=== PATIENT | male | born 1945 | race Caucasian/White ===

== ENCOUNTER 2021-11-07 13:55 | Emergency (ER) | payer MEDICARE, OTHER ==
[2021-11-07 14:08] LABS: BASOPHILS # (AUTO) 0.1 10^3/uL (0.0-0.1); BASOPHILS % (AUTO) 1 % (0-10); EOSINOPHILS # (AUTO) 0.3 10^3/uL (0.0-0.3); EOSINOPHILS % (AUTO) 3 % (0-10); HEMATOCRIT 44 % (40-54); HEMOGLOBIN 14.4 g/dL (13.3-17.7); LYMPHOCYTES # (AUTO) 1.7 10^3/uL (1.0-4.0); LYMPHOCYTES % (AUTO) 18 % (12-44); MEAN CORPUSCULAR HEMOGLOBIN 30 pg (25-34); MEAN CORPUSCULAR HGB CONC 33 g/dL (32-36); MEAN CORPUSCULAR VOLUME 92 fL (80-99); MEAN PLATELET VOLUME 11.8 fL (9.0-12.2); MONOCYTES # (AUTO) 0.6 10^3/uL (0.0-1.0); MONOCYTES % (AUTO) 7 % (0-12); NEUTROPHILS # (AUTO) 6.8 10^3/uL (1.8-7.8); NEUTROPHILS % (AUTO) 72 % (42-75); PLATELET COUNT 153 10^3/uL (130-400); WHITE BLOOD COUNT 9.5 10^3/uL (4.3-11.0)
[2021-11-07 14:16] LABS: INR 1.1 (0.8-1.4)
--- NOTE | 2021-11-07 14:29 | Diagnostic Imaging Report ---
Indication: Dyspnea with lower extremity swelling for 2 days. Comparison: None. Discussion: Single portable upright view of the chest was obtained. Cardiomegaly is noted. Moderate left pleural effusion. No shoaib pulmonary edema. No pneumothorax or osseous abnormality. Impression: 1. Cardiomegaly with moderate left pleural effusion. Dictated by: Dictated on workstation # [id number]
[2021-11-07 14:30] LABS: ALBUMIN 4.3 GM/DL (3.2-4.5); BILIRUBIN,TOTAL 0.8 MG/DL (0.1-1.0); CALCIUM 9.3 MG/DL (8.5-10.1); CREATININE SERUM 0.99 MG/DL (0.60-1.30); MAGNESIUM 1.7 MG/DL (1.6-2.4); POTASSIUM 3.9 MMOL/L (3.6-5.0); TOTAL PROTEIN 6.8 GM/DL (6.4-8.2)
--- NOTE | 2021-11-07 14:33 | ED General ---
General Chief Complaint: Cardiac/General Problems Stated Complaint: HEART PROBLEM Source of Information: Patient, EMS, Family Exam Limitations: No Limitations History of Present Illness Date Seen by Provider: Nov 07, 2021 Time Seen by Provider: 14:00 Initial Comments 76yoM with PMH of CAD s/p stenting coming in via EMS from the urgent care due to lower extremity edema. Started getting worse a couple days ago. He says it's better in the morning and worse at night. He doesn't remember this happening before. He denies any chest pain, SOA, abd pain, n/v/d, weakness, numbness, rash, or any other concerns. He does not take a water pill. He has been urinating normally. He recently just finished a second round of antibiotics for pneumonia. CXR at that time showed cardiomegaly. EMS reports BP 140/86, HR 92, O2 sat 95% on room air. He has no history of CHF that he knows of. The urgent care called EMS because they performed an EKG and there were Q waves in the inferior leads. They gave him full dose aspirin. He did have a heart attack with stenting about a decade ago. Allergies and Home Medications Allergies Coded Allergies: No Known Drug Allergies (Unverified , 11/07/21) Patient Home Medication List Home Medication List Reviewed: Yes Furosemide (Lasix) 20 Mg Tablet, 20 MG PO DAILY Prescribed by: JADEN HENSLEY on 11/07/21 1446 Potassium Chloride (Potassium Chloride) 20 Meq Tablet.er, 20 MEQ PO DAILY Prescribed by: JADEN HENSLEY on 11/07/21 1446 Review of Systems Review of Systems Constitutional: No chills, No fever EENTM: No blurred vision Respiratory: No cough, No short of breath Cardiovascular: No chest pain; edema Gastrointestinal: No abdominal pain, No diarrhea, No nausea, No vomiting Genitourinary: no symptoms reported Musculoskeletal: no symptoms reported Skin: no symptoms reported Psychiatric/Neurological: No Symptoms Reported Hematologic/Lymphatic: No Symptoms Reported Immunological/Allergic: no symptoms reported All Other Systems Reviewed Negative Unless Noted: Yes Past Ozfuzop-Btytsu-Pibkdg Hx Patient Social History Tobacco Use?: Yes Tobacco type used: Cigarettes Past Medical History Surgeries: Yes Coronary Stent Physical Exam Vital Signs Vital Signs - First Documented 11/07/21 14:09 Temp 36.9 Pulse 78 Resp 22 B/P (MAP) 165/95 (118) Pulse Ox 98 O2 Delivery Room Air Capillary Refill : Height, Weight, BMI Height: '" Weight: lbs. oz. kg; BMI Method: General Appearance: No Apparent Distress, WD/WN Eyes: Bilateral Eye Normal Inspection HEENT: PERRL/EOMI, Normal ENT Inspection, Pharynx Normal Neck: Full Range of Motion, Normal Inspection, Non Tender, Carotid Bruit Respiratory: Chest Non Tender, Lungs Clear, Normal Breath Sounds, No Accessory Muscle Use, No Respiratory Distress Cardiovascular: Regular Rate, Rhythm, Normal Peripheral Pulses Gastrointestinal: Normal Bowel Sounds, Non Tender, Soft; No Distended, No Guarding Back: Normal Inspection, No CVA Tenderness Extremity: Normal Capillary Refill, Normal Inspection, Normal Range of Motion, Non Tender, No Calf Tenderness, Pedal Edema (2+ up to his knees) Neurologic/Psychiatric: Alert, No Motor/Sensory Deficits, Normal Mood/Affect Skin: Normal Color, Warm/Dry Lymphatic: No Adenopathy Progress/Results/Core Measures Suspected Sepsis SIRS Temperature: Pulse: Respiratory Rate: Laboratory Tests 11/07/21 14:05: White Blood Count 9.5 Blood Pressure / Mean: Laboratory Tests 11/07/21 14:05: Creatinine 0.99, INR Comment 1.1, Platelet Count 153, Total Bilirubin 0.8 Results/Orders Lab Results Laboratory Tests Test 11/07/21 14:05 Range/Units White Blood Count 9.5 4.3-11.0 10^3/uL Red Blood Count 4.74 4.30-5.52 10^6/uL Hemoglobin 14.4 13.3-17.7 g/dL Hematocrit 44 40-54 % Mean Corpuscular Volume 92 80-99 fL Mean Corpuscular Hemoglobin 30 25-34 pg Mean Corpuscular Hemoglobin Concent 33 32-36 g/dL Red Cell Distribution Width 14.2 10.0-14.5 % Platelet Count 153 130-400 10^3/uL Mean Platelet Volume 11.8 9.0-12.2 fL Immature Granulocyte % (Auto) 0 % Neutrophils (%) (Auto) 72 42-75 % Lymphocytes (%) (Auto) 18 12-44 % Monocytes (%) (Auto) 7 0-12 % Eosinophils (%) (Auto) 3 0-10 % Basophils (%) (Auto) 1 0-10 % Neutrophils # (Auto) 6.8 1.8-7.8 10^3/uL Lymphocytes # (Auto) 1.7 1.0-4.0 10^3/uL Monocytes # (Auto) 0.6 0.0-1.0 10^3/uL Eosinophils # (Auto) 0.3 0.0-0.3 10^3/uL Basophils # (Auto) 0.1 0.0-0.1 10^3/uL Immature Granulocyte # (Auto) 0.0 0.0-0.1 10^3/uL Prothrombin Time 15.0 H 12.2-14.7 SEC INR Comment 1.1 0.8-1.4 Activated Partial Thromboplast Time 32 24-35 SEC Sodium Level 133 L 135-145 MMOL/L Potassium Level 3.9 3.6-5.0 MMOL/L Chloride Level 98 98-107 MMOL/L Carbon Dioxide Level 24 21-32 MMOL/L Anion Gap 11 5-14 MMOL/L Blood Urea Nitrogen 21 H 7-18 MG/DL Creatinine 0.99 0.60-1.30 MG/DL Estimat Glomerular Filtration Rate 79 BUN/Creatinine Ratio 21 Glucose Level 230 H 70-105 MG/DL Calcium Level 9.3 8.5-10.1 MG/DL Corrected Calcium 9.1 8.5-10.1 MG/DL Magnesium Level 1.7 1.6-2.4 MG/DL Total Bilirubin 0.8 0.1-1.0 MG/DL Aspartate Amino Transf (AST/SGOT) 26 5-34 U/L Alanine Aminotransferase (ALT/SGPT) 35 0-55 U/L Alkaline Phosphatase 96 40-136 U/L Troponin I < 0.30 <0.30 NG/ML Pro-B-Type Natriuretic Peptide 60789.0 H <75.0 PG/ML Total Protein 6.8 6.4-8.2 GM/DL Albumin 4.3 3.2-4.5 GM/DL My Orders Orders - JADEN HENSLEY MD Cbc With Automated Diff (11/07/21 14:02) Magnesium (11/07/21 14:02) Chest 1 View Ap/Pa Only (11/07/21 14:02) Ekg Tracing (11/07/21 14:02) Comprehensive Metabolic Panel (11/07/21 14:02) Protime With Inr (11/07/21 14:02) Partial Thromboplastin Time (11/07/21 14:02) O2 (11/07/21 14:02) Monitor-Rhythm Ecg Trace Only (11/07/21 14:02) Ed Iv/Invasive Line Start (11/07/21 14:02) Troponin I Fs (11/07/21 14:02) Probnp Fs (11/07/21 14:02) Furosemide Tablet (Lasix Tablet) (11/07/21 15:00) Potassium Chloride (Tablet) (K Dur Table (11/07/21 15:00) Vital Signs/I&O 11/07/21 14:09 Temp 36.9 Pulse 78 Resp 22 B/P (MAP) 165/95 (118) Pulse Ox 98 O2 Delivery Room Air Capillary Refill : Progress Note : Progress Note 76yoM with above history here for bilateral lower extremity edema. ABCs were intact and vitals were stable on presentation. Physical exam with 2+ pitting edema up to his knees that is equal bilaterally. He has no tenderness or unequal swelling that would be concerning for DVT. There is no redness or concern for cellulitis. Could be dependent versus volume overload from heart versus kidney versus liver. Favor this is dependent edema given he says it is better in the morning and worse at night when he has been standing up all day. Could be some aspect of cardiac related given the cardiomegaly that they previously saw on his chest x-ray. His EKG today shows no signs of acute ischemia. Reviewed the EKG from the urgent care as well and there are no acute changes since that EKG. Chest x-ray with cardiomegaly and the left pleural effusion. Likely secondary to undiagnosed heart failure. I will start him on low-dose Lasix since he is naive to this medicine as well as potassium supplement and have him follow-up with his primary care physician. Troponin is otherwise negative, BNP elevated at 15,000, and labs otherwise unremarkable. I believe he is stable for discharge with outpatient follow-up. He was sent home with strict return precautions ECG Initial ECG Impression Date: Nov 07, 2021 Initial ECG Impression Time: 14:09 Initial ECG Rate: 86 Initial ECG Rhythm: Normal Sinus Comment Narrow QRS, borderline left axis deviation, Q waves in the anterior leads consistent with his prior history of PR, no acute ST changes or T wave abnormalities Diagnostic Imaging Diagonstic Imaging: Xray (chest) Comments [facility] [place], [place] NAME: [facility] REC#: [id number] PT STATUS: REG ER : 1945 PHYSICIAN: JADEN HENSLEY MD ADMIT DATE: 11/07/21/ER FS Draft Date of Exam:11/07/21 CHEST 1 VIEW AP/PA ONLY Indication: Dyspnea with lower extremity swelling for 2 days. Comparison: None. Discussion: Single portable upright view of the chest was obtained. Cardiomegaly is noted. Moderate left pleural effusion. No shoaib pulmonary edema. No pneumothorax or osseous abnormality. Impression: 1. Cardiomegaly with moderate left pleural effusion. Dictated on workstation # [id number] Dict: 11/07/21 1417 Trans: 11/07/21 1429 CVB [id number] Interpreted by: JARRED GARZA MD Electronically signed by: Departure Impression Primary Impression: Pleural effusion Additional Impressions: Volume overload Qualified Codes: E87.70 - Fluid overload, unspecified Lower extremity edema Disposition: HOME, SELF-CARE Condition: Stable Departure-Patient Inst. Decision time for Depature: 16:50 Referrals: SAMEER GRAF MD (PCP) Primary Care Physician PATRICIA GUERRERO MD Patient Instructions: CHF, Pleural Effusion (DC) Add. Discharge Instructions: You do have some extra fluid on her legs and some extra fluid on the left side of your lungs. This is likely related to your heart not squeezing as well as it could also known as heart failure. I want you to follow-up with the entry level web developer, Dr. Guerrero, in [place], there is a number attached to this paperwork. I want them to be able to do an echo of your heart to see if you have heart failure. I will start you on a water pill which will help you urinate out the extra fluid. This can lower your potassium, so you will also take a potassium supplement with this. If you have severe chest pain or severe shortness of breath I want you to come back to the ER. Scripts Potassium Chloride (Potassium Chloride) 20 Meq Tablet.er 20 MEQ PO DAILY for 14 Days, #14 TAB Prov: JADEN HENSLEY MD 11/07/21 Furosemide (Lasix) 20 Mg Tablet 20 MG PO DAILY for 14 Days, #14 TAB Prov: JADEN HENSLEY MD 11/07/21 JADEN HENSLEY MD Nov 07, 2021 14:33
[2021-11-07] MEDS ORDERED: POTA-51 PO (14:46)
[2021-11-07] MEDS ORDERED: FURO-125 PO (14:46)
[2021-11-07 14:56] VITALS: BP 158/96
[2021-11-07] MEDS ORDERED: FUROSEMIDE 20 MG (LASIX) TAB PO ONE (15:00)
[2021-11-07] MEDS ORDERED: KCL 20 MEQ TAB (K-DUR) PO ONE (15:00)
== END 2021-11-07 15:00 | disposition home or self-care (01) ==
LOC: ER FS 13:57 → EDBD 13:57 → ER FS 15:00
DX: J90 Pleural effusion, not elsewhere classified (principal); E87.70 Fluid overload, unspecified; Z72.0 Tobacco use
CPT/HCPCS: 36415; 71045; 80053; 83735; 83880; 84484; 85025; 85610; 85730; 93005; 93041

== ENCOUNTER → 2021-12-09 | Outpatient (CLI) | payer MEDICARE ==
[~2021-12-09] MED LIST: CATHETER FLUSH 10 ML SYR IVP PRN; FURO-125 PO; POTA-51 PO; REGADENOSON 0.4 MG/5 ML SYR (LEXISCAN) IV ONE
[2021-12-09 13:35] VITALS: BP 184/114
--- NOTE | 2021-12-09 15:31 | Cardiology Stress Test Report ---
Stress Test Report Date of Procedure/Referring: Date of Procedure: December 09, 2021 Samantha Knott Admitting Physician Barron Miranda MD Indications: NSR Baseline Heart Rate: 100 Baseline Blood Pressure: Blood Pressure Systolic: 184 Blood Pressure Diastolic: 114 Baseline Vitals Vital Signs Date Time Temp Pulse Resp B/P (MAP) Pulse Ox O2 Delivery O2 Flow Rate FiO2 12/09/21 13:35 102 184/114 (137) Baseline EKG: Baseline EKG: NSR, PVC Summary After explaining the procedure to the patient, he signed a consent and then brought to the stress nuclear laboratory. Patient received 0.4 mg Lexiscan for stress test, ECG, heart rate and blood pressure were monitored continuously. Resting and stress dose of radio tracer were injected, imaging was acquired and reviewed in short axis, horizontal long axis and vertical long axis views. TID: 1.13 SSS: 21 SDS: 5 EF: 18 1. Patient tolerated Lexiscan well 2. Baseline frequent PVCs and ventricular bigeminy persisted during test 3. Reversible ischemia involving the whole inferior wall inferolateral wall and inferoseptum with patchy uptake 4. Dilated left ventricle with severe diffuse left ventricular hypokinesia more pronounced at the inferior wall and inferolateral wall, ejection fraction 18% PATRICIA NAVARRO MD December 09, 2021 15:31
== END ==
LOC: CARD 11:30
PROVIDERS: ATTEND Physician Assistant
DX: I11.9 Hypertensive heart disease without heart failure (principal); I08.0 Rheumatic disorders of both mitral and aortic valves; I25.10 Atherosclerotic heart disease of native coronary artery without angina pectoris
CPT/HCPCS: 78452; 93017; 93306; A9502

== ENCOUNTER 2021-12-16 06:41 | Day surgery (SDC) | payer MEDICARE ==
[~2021-12-16] VITALS: Ht 172.7 cm; Wt 72.3 kg
[2021-12-16] VITALS (14 sets, daily range): BP systolic 109–189; BP diastolic 78–123
[~2021-12-16 06:41] MED LIST changes: -CATHETER FLUSH 10 ML SYR IVP PRN; -REGADENOSON 0.4 MG/5 ML SYR (LEXISCAN) IV ONE
[2021-12-16] MEDS ORDERED: NS IV 1000 ML 1,000 ML ONE (06:53)
[2021-12-16] MEDS ORDERED: LIDOCAINE 1% INJ 20 ML VIAL ONE (06:53)
[2021-12-16] MEDS ORDERED: HEParin (CATH LAB) 2,000 ML IV ONE (06:53)
[2021-12-16 07:19] LABS: HEMATOCRIT 46 % (40-54); HEMOGLOBIN 14.9 g/dL (13.3-17.7); MEAN CORPUSCULAR HEMOGLOBIN 30 pg (25-34); MEAN CORPUSCULAR HGB CONC 32 g/dL (32-36); MEAN CORPUSCULAR VOLUME 94 fL (80-99); MEAN PLATELET VOLUME 12.1 fL (9.0-12.2); PLATELET COUNT 143 10^3/uL (130-400); WHITE BLOOD COUNT 9.6 10^3/uL (4.3-11.0)
[2021-12-16 07:30] LABS: POTASSIUM 3.3 MMOL/L (3.6-5.0)
[2021-12-16] MEDS: NS IV 1000 ML 1,000 ML IV SCH ×4 (07:30→17:40)
[2021-12-16] MEDS ORDERED: LISI20TA26 PO (07:30)
[2021-12-16] MEDS ORDERED: CLOP75TA69 PO (07:30)
[2021-12-16] MEDS ORDERED: ASPI-1238 PO (07:30)
[2021-12-16] MEDS ORDERED: METF-397 PO (07:30)
[2021-12-16] MEDS ORDERED: METO50TA15 PO (07:30)
[2021-12-16] MEDS ORDERED: ATOR20TA66 PO (07:30)
[2021-12-16 07:31] LABS: ALBUMIN 4.4 GM/DL (3.2-4.5)
[2021-12-16 07:32] LABS: CALCIUM 9.2 MG/DL (8.5-10.1); INR 1.2 (0.8-1.4); PROTHROMBIN TIME PATIENT 15.6 SEC (12.2-14.7)
[2021-12-16 07:33] LABS: TOTAL PROTEIN 6.9 GM/DL (6.4-8.2)
--- NOTE | 2021-12-16 07:33 | Conscious Sedation/ASA ---
Conscious Sedation Pre-Proced Time 07:33 ASA Score 3 For ASA 3 and 4: Consider anesthesia and medical clearance. Also, for patients with a history of failed moderate sedation consider anesthesia. Airway Lungs Heart ASA score ASA 1: a normal healthy patient ASA 2: a patient with a mild systemic disease (mid diabetes, controlled hypertension, obesity x ASA 3: a patient with a severe systemic disease that limits activity (angina, COPD, prior Myocardial infarction) ASA 4: a patient with an incapacitating disease that is a constant threat to life (CHF, renal failure) ASA 5: a moribund patient not expected to survive 24 hrs. (ruptured aneurysm) ASA 6: a declared brain- patient whose organs are being harvested. For emergent operations, add the letter E after the classification Mallampati Classification Grade 3 Sedation Plan Analgesia, Amnesia, Plan communicated to team members, Discussed options with patient/fam, Discussed risks with patient/fam The patient is an appropriate candidate to undergo the planned procedure, sedation, and anesthesia. The patient immediately re-assessed prior to indication. PATRICIA NAVARRO MD December 16, 2021 07:33
[2021-12-16 07:37] LABS: CREATININE SERUM 0.99 MG/DL (0.60-1.30)
[2021-12-16] MEDS ORDERED: HEParin 1000 UNIT/ML (10ML VIAL) FOR BOLUS ONE ×2 (07:39→08:30)
[2021-12-16] MEDS ORDERED: MIDAZOLAM 5 MG/5 ML (VERSED) VIAL ONE (07:39)
[2021-12-16] MEDS ORDERED: NITRO DRIP 25000 MCG/D5W 0 ML IV ONE (07:39)
[2021-12-16] MEDS ORDERED: fentaNYL INJ 100 MCG/2 ML AMP ONE (07:39)
[2021-12-16] MEDS ORDERED: VERAPAMIL 5 MG/2 ML (CALAN) VIAL IV ONE (07:39)
--- NOTE | 2021-12-16 07:45 | Diagnostic Imaging Report ---
INDICATION: Coronary artery disease. COMPARISON: 11/07/2021. FINDINGS: The heart is enlarged. Left pleural effusion has nearly resolved. Upper lobes clear and well expanded. There is some mild residual left greater than right bibasilar atelectasis this also significantly improved. IMPRESSION: Similar enlargement of the cardiac silhouette, however resolving pleural fluid and decreased basilar atelectasis and Luz B's. No adverse change. No pneumothorax. Dictated by: Dictated on workstation # [id number]
[2021-12-16] MEDS ORDERED: meTOprolol 5 MG/5 ML (LOPRESSOR) VIAL ONE (08:38)
[2021-12-16] MEDS ORDERED: ASPIRIN 325 MG (5 GR) TABLET ONE (08:38)
[2021-12-16] MEDS ORDERED: CLOPIDOGREL 300 MG (PLAVIX) TABLET PO ONE (08:38)
--- NOTE | 2021-12-16 08:57 | Cardiac Cath Report ---
Cardiac Cath Report Physician (s)/Writer Technical Publications (s) Physician PATRICIA NAVARRO MD Pre-Procedure Diagnosis Pre-Procedure Diagnosis: Coronary artery disease Post-Procedure Note Procedure Start Date: December 16, 2021 Name of Procedure: Left heart catheterization Balloon angioplasty to the right coronary artery Findings/Procedure Note PROCEDURE NOTE: 76-year-old gentleman with history of coronary artery disease multiple intervention, had an abnormal stress test with inferior wall ischemia. After explaining the procedure to the patient, all pros and cons were explained, all questions were answered. The patient signed the consent and then he was placed on the cardiac catheterization laboratory. Groin was prepped SL fashion local anesthesia was used. Sheath placed in the right femoral artery. Farida right and left catheter were used to access the coronary system. Farida right prolapsed to the left ventricular cavity, pressure was measured, pullback LV to aorta was done. Patient received 5000 units of heparin, Farida right guide was advanced to the right coronary artery, BMW wire was advanced and parked distally. Balloon angioplasty was done with 2.5 x 20 mm trek balloon multiple inflations were done up to 16 felicia. Angiogram showed excellent results. At the end of the procedure the sheath was removed. Closure device was deployed FINDINGS: Hemodynamics LV 159/24, end-diastolic pressure of 24 Aorta 157/89 mean of 118 ANATOMY: Left Main is free of obstructive disease Left Anterior Descending is calcified with mild to moderate disease, nonobstructive disease Left Circumflex is calcified artery with patent stent in the mid circumflex artery nonobstructive disease Right Coronary Artery is large dominant artery with long stent in the proximal and mid right coronary artery severe in-stent restenosis/subtotal occlusion, successful balloon angioplasty using trek 2.5 x 20 mm balloon expanded under 16 felicia with excellent results. LV Gram was not done, pressure was measured CONCLUSION: 1. Severe in-stent restenosis in the mid right coronary artery with successful balloon angioplasty and excellent results. Mild to moderate disease distally 2. Patent stent in the mid circumflex artery with mild to moderate disease, calcified LAD with mild disease nonobstructive disease 3. Elevated left ventricular end-diastolic pressure. Patient is known to have ejection fraction 20 to 25%. We will continue maximizing medical therapy DISCUSSION AND RECOMMENDATION: Continue to maximize medical therapy and monitor, will consider ICD implant if his LV function did not improve Anesthesia Type: Conscious Sedation Estimated blood loss (mL): 25 ml Contrast Amount: 56 ml Total Radiation Dose: 523 mGy Post-Procedure Diagnosis Post-operative diagnosis: Chest pain Coronary artery disease Congestive heart failure, chronic compensated left ventricular systolic dysfunction, ischemic cardiomyopathy Hypertension Hyperlipidemia PATRICIA NAVARRO MD December 16, 2021 08:57
[2021-12-16] MEDS ORDERED: lisINopril 20 MG (PRINIVIL) TABLET PO SCH (09:00)
[2021-12-16] MEDS ORDERED: PATIENT MAY USE OWN MEDS, ALL PO SCH (09:00)
[2021-12-16] MEDS ORDERED: ASPIRIN E.C. 81 MG (ECOTRIN) TAB PO SCH (09:00)
[2021-12-16] MEDS ORDERED: CLOPIDOGREL 75 MG (PLAVIX) TABLET PO SCH (09:00)
[2021-12-16] MEDS ORDERED: EMPAGLIFLOZIN 10 MG TABLET (JARDIANCE) PO SCH (09:15)
[2021-12-16] MEDS: meTOprolol TARTRATE 50 MG (LOPRESSOR) TAB PO SCH ×2 (10:19→21:55)
[2021-12-17] VITALS: BP 160/99
[2021-12-17 04:00] VITALS: BP 153/106
[2021-12-17 05:28] LABS: HEMOGLOBIN 13.9 g/dL (13.3-17.7); MEAN PLATELET VOLUME 12.4 fL (9.0-12.2)
[2021-12-17 05:30] LABS: WHITE BLOOD COUNT 8.7 10^3/uL (4.3-11.0)
[2021-12-17 05:43] LABS: POTASSIUM 3.8 MMOL/L (3.6-5.0)
[2021-12-17 05:44] LABS: CALCIUM 9.3 MG/DL (8.5-10.1)
[2021-12-17] MEDS ORDERED: METF-397 PO (05:59)
[2021-12-17] MEDS ORDERED: EMPA10TA PO (05:59)
--- NOTE | 2021-12-17 06:00 | Discharge Inst-Post CATH ---
Discharge Inst-CATH/EP Problems Reviewed?: Yes Post Cardiac Cath/EP D/C Inst Follow Up/Plan Hold Metformin for [address] Guerrero in 2-4 weeks <b>CARDIAC CATH/EP PROCEDURE DISCHARGE INSTRUCTIONS</b> ACTIVITY * Go Home directly and rest. * Limit activity of the leg (or wrist if it was used) for 7 days including aerobics, swimming, jogging, bicycling, etc. * Restrict stair-climbing for 7 days if possible, if not, climb up with your non-cath leg, then bring together on the same step. * Avoid lifting, pushing, pulling or excessive movement of the affected extremity for 7 days. * Customary sexual activity may be resumed after 2 days-use caution not to use a position that strains or causes pain to the affected extremity. * No driving for 24 hours. * NO SMOKING. * Avoid straining for bowel movements for 7 days. * Gentle walking on level ground is allowed. * Returning to work will depend on the type of procedure and the results. Your doctor will discuss this with you. CALL YOUR DOCTOR FOR ANY OF THE FOLLOWING: *If bleeding from the puncture site occurs- Apply gentle pressure to site with clean cloth and call your doctor or EMS. * If a knot or lump forms under the skin, increases in size, or causes pain. * If bruising appears to be worsening or moving further down your leg instead of disappearing. * Temperature above 101 F. CARE OF YOUR GROIN INCISION; * Bruising or purple discoloration of the skin near the puncture site is common. * You may shower only, no bathtub bathing for 5 days. Be careful to avoid slipping as your leg may feel stiff. * If a closure device was used on your femoral artery, please see the attached guide regarding care of the device and your leg. * Leave dressing on FOR 24 hours. CARE OF YOUR WRIST INCISION; * Bruising or purple discoloration of the skin near the puncture site is common. * You may shower. * DO NOT submerge wrist. * Leave dressing on FOR 24 hours. PATRICIA GUERRERO MD December 17, 2021 06:00
--- NOTE | 2021-12-17 07:50 | Cardiology Progress Note ---
Subjective Date Seen by Provider: December 17, 2021 Time Seen by Provider: 07:48 Subjective/Events-last exam Patient was seen and evaluated. Feeling better, groin is healing well. No chest pain Review of Systems General: No Chills, No Night Sweats, No Fatigue, No Malaise, No Appetite, No Other HEENT: No Head Aches, No Visual Changes, No Eye Pain, No Ear Pain, No Dyspha yusuf, No Sinus Congestion, No Post Nasal Drip, No Sore Throat, No Other Pulmonary: No Dyspnea, No Cough, No Pleuritic Chest Pain, No Other Cardiovascular: No: Chest Pain, Palpitations, Orthopnea, Paroxysmal Noc. Dyspnea, Edema, Lt Headedness, Other Objective-Cardiology Exam Last Set of Vital Signs Vital Signs 12/16/21 12/16/21 12/17/21 09:10 21:00 04:00 Temp 36.3 Pulse 88 Resp 25 B/P (MAP) 153/106 (122) Pulse Ox 99 O2 Delivery Room Air O2 Flow Rate 3.00 General: Alert, Oriented X3, Cooperative HEENT: Atraumatic, PERRLA Neck: Supple, No JVD, No Thyromegaly Lungs: Clear to Auscultation, Normal Air Movement Heart: Regular Rate, Normal S1, Normal S2, No Murmurs Abdomen: Normal Bowel Sounds, Soft, No Tenderness, No Hepatosplenomegaly, No Masses Extremities: No Clubbing, No Cyanosis, No Edema, Normal Pulses, No Tenderness/Swelling Skin: No Rashes, No Breakdown, No Significant Lesion Neuro: Normal Gait, Normal Speech, Strength at 5/5 X4 Ext, Normal Tone, Sensation Intact Psych/Mental Status: Mental Status NL, Mood NL Results Lab Laboratory Tests 12/17/21 05:10 A/P-Cardiology Admission Diagnosis Coronary artery disease Hypertension Hyperlipidemia Diabetes mellitus Assessment/Plan Coronary artery disease status post PTCA for in-stent restenosis of the right coronary artery: 1. Severe in-stent restenosis in the mid right coronary artery with successful balloon angioplasty and excellent results. Mild to moderate disease distally 2. Patent stent in the mid circumflex artery with mild to moderate disease, calcified LAD with mild disease nonobstructive disease 3. Elevated left ventricular end-diastolic pressure. Patient is known to have ejection fraction 20 to 25%. We will continue maximizing medical therapy Hypertension, continue current medication monitor Hyperlipidemia, monitor lipids Diabetes mellitus, adding Jardiance RAMON,BASHAR J MD December 17, 2021 07:49
== END 2021-12-17 08:45 | disposition home or self-care (01) ==
LOC: CATH 06:41 → CSD 09:13 → CATH 12-17 08:45
PROVIDERS: ATTEND Internal Medicine Cardiovascular Disease
DX: T82.855A Stenosis of coronary artery stent, initial encounter (principal); I25.10 Atherosclerotic heart disease of native coronary artery without angina pectoris; I50.22 Chronic systolic (congestive) heart failure; I10 Essential (primary) hypertension; I25.5 Ischemic cardiomyopathy; I25.2 Old myocardial infarction; I65.23 Occlusion and stenosis of bilateral carotid arteries; E78.2 Mixed hyperlipidemia; E11.9 Type 2 diabetes mellitus without complications; J18.9 Pneumonia, unspecified organism; F17.210 Nicotine dependence, cigarettes, uncomplicated; Z79.84 Long term (current) use of oral hypoglycemic drugs; Z79.899 Other long term (current) drug therapy
CPT/HCPCS: 71045; 80048; 80053; 80061; 85027 ×2; 85610; 85730; 87081; 92920; 93005 ×2; 93458; C1725; C1760; C1769; C1887; C1894; 36415

== ENCOUNTER 2022-03-19 17:16 | Inpatient (IN) | payer MEDICARE ==
[~2022-03-19] VITALS: Ht 170.2 cm; Wt 73.1 kg
[~2022-03-19 17:16] MED LIST changes: +ASPI-1238 PO; +ATOR20TA66 PO; +CLOP75TA69 PO; +EMPA10TA PO; +LISI20TA26 PO; +METF-397 PO; +METO50TA15 PO
[2022-03-19 18:02] LABS: BASOPHILS # (AUTO) 0.1 10^3/uL (0.0-0.1); BASOPHILS % (AUTO) 1 % (0-10); EOSINOPHILS # (AUTO) 0.2 10^3/uL (0.0-0.3); EOSINOPHILS % (AUTO) 3 % (0-10); HEMATOCRIT 43 % (40-54); HEMOGLOBIN 13.9 g/dL (13.3-17.7); LYMPHOCYTES # (AUTO) 1.6 10^3/uL (1.0-4.0); LYMPHOCYTES % (AUTO) 20 % (12-44); MEAN CORPUSCULAR HEMOGLOBIN 29 pg (25-34); MEAN CORPUSCULAR HGB CONC 33 g/dL (32-36); MEAN CORPUSCULAR VOLUME 88 fL (80-99); MEAN PLATELET VOLUME 13.3 fL (9.0-12.2); MONOCYTES # (AUTO) 0.5 10^3/uL (0.0-1.0); MONOCYTES % (AUTO) 7 % (0-12); NEUTROPHILS # (AUTO) 5.7 10^3/uL (1.8-7.8); NEUTROPHILS % (AUTO) 70 % (42-75); PLATELET COUNT 115 10^3/uL (130-400); WHITE BLOOD COUNT 8.1 10^3/uL (4.3-11.0)
--- NOTE | 2022-03-19 18:03 | Diagnostic Imaging Report ---
INDICATION: Dyspnea. TECHNIQUE: Portable AP view of the chest is obtained with comparison made to study of 12/16/2021. FINDINGS: There has been development of large amount of left pleural fluid. There is pulmonary venous congestion and bilateral airspace disease, likely due to edema or possible pneumonitis. There is no pneumothorax identified. IMPRESSION: Bilateral pulmonary opacity likely represents edema or pneumonitis with development of large amount of left pleural fluid. Dictated by: Dictated on workstation # [id number]
[2022-03-19 18:22] LABS: BUN/CREATININE RATIO 29; CARBON DIOXIDE 26 MMOL/L (21-32); CHLORIDE 102 MMOL/L (98-107); GFR ESTIMATED 89; GLUCOSE 201 MG/DL (70-105); POTASSIUM 3.1 MMOL/L (3.6-5.0); SODIUM 139 MMOL/L (135-145)
[2022-03-19 18:23] LABS: ALANINE AMINOTRANSFERASE 28 U/L (0-55); ALBUMIN 4.1 GM/DL (3.2-4.5); ALKALINE PHOSPHATASE 131 U/L (40-136); BILIRUBIN,TOTAL 1.2 MG/DL (0.1-1.0); MAGNESIUM 1.4 MG/DL (1.6-2.4); TOTAL PROTEIN 6.3 GM/DL (6.4-8.2)
[2022-03-19] MEDS ORDERED: FUROSEMIDE 40 MG/4 ML INJ (LASIX) IVP ONE (19:00)
[2022-03-19] MEDS ORDERED: KCL 20 MEQ TAB (K-DUR) PO ONE (19:00)
[2022-03-19] MEDS ORDERED: SPIRONOLACTONE 100 MG (ALDACTONE) TABLET PO ONE (19:15)
[2022-03-19] MEDS ORDERED: LIDOCAINE UROJET 2% GEL 10 ML PKG TOP ONE (19:15)
--- NOTE | 2022-03-19 19:21 | ED General ---
General Chief Complaint: Cough/Cold/Flu Symptoms Stated Complaint: CHEST CONGESTION Nursing Triage Note: Patient reports he has had chest congestion and tightness for 5-6 days. He reports he was seen at the [facility] walk-in clinic earlier today and had a chest xray that showed left lower lobe pneumonia and a left pleural effusion. He reports the walk-in care provider prescribed him antibiotics for the pneumonia, but told him he would need to come to the ED to get treatment for his pleural effusion. He reports he takes 40 mg of lasix daily and that he had a cardiac catheterization with Dr. Guerrero in December 2021. He reports he had 2 cardiac stents previously placed. Source of Information: Patient Exam Limitations: No Limitations History of Present Illness Date Seen by Provider: Mar 19, 2022 Time Seen by Provider: 17:00 Initial Comments Patient is a 76-year-old male presents with chest tightness congestion with orthopnea for the past several days. Patient has history of CHF, cardiomyopathy and hypertension and reports a 20 pound weight gain in the past several weeks. He denies dyspnea when sitting but reports mild dyspnea with exertion he denies chest pain palpitations. Reports dry nonproductive cough. He reports increased leg swelling extending into his thighs. No fever chills or sweats. No other acute symptoms or complaints. Patient's globe cleaner is Dr. Guerrero. Timing/Duration: 6-7 Days, Getting Worse Severity: Moderate Modifying Factors: improves with Other Associated Systoms: Other Allergies and Home Medications Allergies Coded Allergies: No Known Drug Allergies (Unverified , 11/07/21) Patient Home Medication List Home Medication List Reviewed: Yes Aspirin (Aspirin EC) 81 Mg Tablet., 81 MG PO DAILY, (Reported) Entered as Reported by: ERASMO ENRIQUEZ on 12/16/21729 Atorvastatin Calcium (Atorvastatin Calcium) 20 Mg Tablet, 20 MG PO DAILY, (Reported) Entered as Reported by: ERASMO ENRIQUEZ on 12/16/21729 Clopidogrel Bisulfate (Plavix) 75 Mg Tablet, 75 MG PO DAILY, (Reported) Entered as Reported by: ERASMO ENRIQUEZ on 12/16/21729 Empagliflozin (Jardiance) 10 Mg Tablet, 10 MG PO DAILY Prescribed by: PATRICIA GUERRERO on 12/17/21 0559 Lisinopril (Lisinopril) 20 Mg Tablet, 20 MG PO DAILY, (Reported) Entered as Reported by: ERASMO ENRIQUEZ on 12/16/21 07 Metformin HCl (Metformin HCl) 500 Mg Tablet, 1,000 MG PO BID Prescribed by: PATRICIA GUERRERO on 12/17/21 0559 Metoprolol Tartrate (Metoprolol Tartrate) 50 Mg Tablet, 50 MG PO BID, (Reported) Entered as Reported by: ERASMO ENRIQUEZ on 12/16/21729 Review of Systems Review of Systems Constitutional: see HPI EENTM: see HPI Respiratory: see HPI Cardiovascular: see HPI Gastrointestinal: see HPI Genitourinary: see HPI Musculoskeletal: see HPI Skin: see HPI Psychiatric/Neurological: See HPI Hematologic/Lymphatic: See HPI Immunological/Allergic: see HPI All Other Systems Reviewed Negative Unless Noted: No Past Kznpuol-Tjwcrg-Bqyvvq Hx Patient Social History Tobacco Use?: Yes Tobacco type used: Cigarettes Substance use?: No Alcohol Use?: No Pt feels they are or have been: No Immunizations Up To Date First/Initial COVID19 Vaccinat: Yes Second COVID19 Vaccination Anton: Yes Past Medical History Surgery/Hospitalization HX: CAD, CHF, DM, HTN, cardiac stents Surgeries: Yes Coronary Stent Pneumonia Coronary Artery Disease, High Cholesterol, Hypertension Physical Exam Vital Signs Vital Signs - First Documented 03/19/22 17:26 Temp 36.1 Pulse 60 Resp 18 B/P (MAP) 138/82 (100) Pulse Ox 97 O2 Delivery Room Air Capillary Refill : Less Than 3 Seconds Height, Weight, BMI Height: '" Weight: lbs. oz. kg; 27.00 BMI Method: General Appearance: No Apparent Distress, WD/WN Eyes: Bilateral Eye Normal Inspection, Bilateral Eye PERRL, Bilateral Eye EOMI HEENT: PERRL/EOMI, Normal ENT Inspection, Pharynx Normal Neck: Supple Respiratory: Lungs Clear Cardiovascular: Other (Edema extending from feet to distal thighs) Gastrointestinal: Non Tender Back: Normal Inspection Extremity: Swelling Focused Exam Sepsis Stage: Ruled Out Progress/Results/Core Measures Suspected Sepsis SIRS Temperature: Pulse: 60 Respiratory Rate: 18 Laboratory Tests 03/19/22 17:55: White Blood Count 8.1 Blood Pressure 138 /82 Mean: 100 Laboratory Tests 03/19/22 17:55: Creatinine 0.90, Platelet Count 115L, Total Bilirubin 1.2H Results/Orders Lab Results Laboratory Tests Test 03/19/22 17:55 Range/Units White Blood Count 8.1 4.3-11.0 10^3/uL Red Blood Count 4.85 4.30-5.52 10^6/uL Hemoglobin 13.9 13.3-17.7 g/dL Hematocrit 43 40-54 % Mean Corpuscular Volume 88 80-99 fL Mean Corpuscular Hemoglobin 29 25-34 pg Mean Corpuscular Hemoglobin Concent 33 32-36 g/dL Red Cell Distribution Width 16.5 H 10.0-14.5 % Platelet Count 115 L 130-400 10^3/uL Mean Platelet Volume 13.3 H 9.0-12.2 fL Immature Granulocyte % (Auto) 0 % Neutrophils (%) (Auto) 70 42-75 % Lymphocytes (%) (Auto) 20 12-44 % Monocytes (%) (Auto) 7 0-12 % Eosinophils (%) (Auto) 3 0-10 % Basophils (%) (Auto) 1 0-10 % Neutrophils # (Auto) 5.7 1.8-7.8 10^3/uL Lymphocytes # (Auto) 1.6 1.0-4.0 10^3/uL Monocytes # (Auto) 0.5 0.0-1.0 10^3/uL Eosinophils # (Auto) 0.2 0.0-0.3 10^3/uL Basophils # (Auto) 0.1 0.0-0.1 10^3/uL Immature Granulocyte # (Auto) 0.0 0.0-0.1 10^3/uL Percent Immature Platelet Fraction 9.7 H 0.0-7.6 % Sodium Level 139 135-145 MMOL/L Potassium Level 3.1 L 3.6-5.0 MMOL/L Chloride Level 102 98-107 MMOL/L Carbon Dioxide Level 26 21-32 MMOL/L Anion Gap 11 5-14 MMOL/L Blood Urea Nitrogen 26 H 7-18 MG/DL Creatinine 0.90 0.60-1.30 MG/DL Estimat Glomerular Filtration Rate 89 BUN/Creatinine Ratio 29 Glucose Level 201 H 70-105 MG/DL Calcium Level 9.0 8.5-10.1 MG/DL Corrected Calcium 8.9 8.5-10.1 MG/DL Magnesium Level 1.4 L 1.6-2.4 MG/DL Total Bilirubin 1.2 H 0.1-1.0 MG/DL Aspartate Amino Transf (AST/SGOT) 23 5-34 U/L Alanine Aminotransferase (ALT/SGPT) 28 0-55 U/L Alkaline Phosphatase 131 40-136 U/L Troponin I < 0.30 <0.30 NG/ML Pro-B-Type Natriuretic Peptide 64264.0 H <450.0 PG/ML Total Protein 6.3 L 6.4-8.2 GM/DL Albumin 4.1 3.2-4.5 GM/DL Influenza Type A (RT-PCR) Not Detected Not Detecte Influenza Type B (RT-PCR) Not Detected Not Detecte SARS-CoV-2 RNA (RT-PCR) Not Detected Not Detecte My Orders Orders - TIFFANY PERKINS DO Magnesium (03/19/22 17:47) Cbc With Automated Diff (03/19/22 17:48) Comprehensive Metabolic Panel (03/19/22 17:48) Troponin I Fs (03/19/22 17:48) Probnp Fs (03/19/22 17:48) Chest 1 View Ap/Pa Only (03/19/22 17:48) Ekg Tracing (03/19/22 17:48) Covid 19 Inhouse Test (03/19/22 17:49) Influenza A And B By Pcr (03/19/22 17:49) Isolation Central Supply Req (03/19/22 17:49) Furosemide Injection (Lasix Injection) (03/19/22 19:00) Potassium Chloride (Tablet) (K Dur Table (03/19/22 19:00) Spironolactone Tablet (Aldactone Tablet) (03/19/22 19:15) Catheter(Urinary) Insert & Ass 03,15 (03/19/22 19:14) Lidocaine 2% (Urojet) (Xylocaine Urojet) (03/19/22 19:15) Medications Given in ED Current Medications Medications Dose Ordered Sig/Danii Route Start Time Stop Time Status Last Admin Dose Admin Furosemide 80 mg ONCE ONCE IVP 03/19/22 19:00 03/19/22 19:01 DC 03/19/22 19:02 80 MG Potassium Chloride 40 meq ONCE ONCE PO 03/19/22 19:00 03/19/22 19:01 DC 03/19/22 19:02 40 MEQ Vital Signs/I&O 03/19/22 17:26 Temp 36.1 Pulse 60 Resp 18 B/P (MAP) 138/82 (100) Pulse Ox 97 O2 Delivery Room Air Capillary Refill : Less Than 3 Seconds Blood Pressure Mean: 100 Departure Communication (Admissions) EKG: Sinus rhythm, rate 65, decreased voltage pattern with occasional PVC and nonspecific ST-T wave changes. Chest x-ray: Cardial pulmonary vascular congestion with large pleural effusion. Patient with acute congestive heart failure with volume overload. Case reviewed in detail with Dr. Guerrero. Recommendations are IV Lasix, catheterization and hospitalist admission. Dr. John to admit. Impression Primary Impression: Acute congestive heart failure Additional Impression: Hypokalemia Disposition: ADMITTED INPATIENT Condition: Stable/Unchanged Admissions Decision to Admit/Date: Mar 19, 2022 Time/Decision to Admit Time: 19:00 (Dr. John) Departure-Patient Inst. Referrals: SAMEER GRAF MD (PCP/Family) Primary Care Physician TIFFANY PERKINS DO Mar 19, 2022 19:21
[2022-03-19 20:56] VITALS: BP 158/106
[2022-03-19 21:15] VITALS: BP 147/110
[2022-03-19] MEDS ORDERED: SPIRONOLACTONE 25 MG (ALDACTONE) TAB ONE (21:38)
--- NOTE | 2022-03-19 21:44 | Tele-ICU Consult ---
Progress Note (Tele-ICU Physician , consultation) Available chart/ vitals / labs / Images reviewed H&P is from ER notes Patient's information available about PMH, allergy reviewed in EMR. ROS as per chart and RN report Video assessment done using teleICU camera, rest of exam as per RN Discussed with RN. Consultants: Cardiology Hospital course: 76 yo M admitted with acute HF exacerbation, acute pulmonary edema and left pleural effusion. On RA talking on mobile phone without distress. Human Resources Executive on consult, lasix received. Echo pending. Neg sepsis screen. A/P Cardiology consult Diuresis Replace electrolytes Echo Consider thoracentesis Lines: PIV (Central Line Necessity Reviewed) Newell: N/A OG: N/A Nutrition: Cardiac diet Analgesia: N/A VTE Prophylaxis: Lovenox Stress Ulcer Prophylaxis: N/A Plans in collaboration with bedside consultants and Primary MD. RN to reach out if any questions or concerns Focused Exam Height, Weight, BMI Height: '" Weight: lbs. oz. kg; 27.65 BMI Method: DESMOND LUTZ MD Mar 19, 2022 21:44
[2022-03-19] MEDS ORDERED: SPIRONOLACTONE 25 MG (ALDACTONE) TAB PO ONE (22:00)
[2022-03-19] MEDS: ENOXAPARIN 40 MG/0.4 ML (LOVENOX) SYR SC SCH (22:12)
[2022-03-19] MEDS: MAGNESIUM 1 GM/100 ML IVPB 100 ML IV SCH ×2 (22:12→22:16)
[2022-03-19] MEDS: CATHETER FLUSH 10 ML SYR IVP SCH (22:16)
[2022-03-20 04:48] LABS: BASOPHILS # (AUTO) 0.1 10^3/uL (0.0-0.1); HEMOGLOBIN 12.9 g/dL (13.3-17.7); MEAN CORPUSCULAR HEMOGLOBIN 28 pg (25-34); MEAN CORPUSCULAR VOLUME 89 fL (80-99); MONOCYTES # (AUTO) 0.5 10^3/uL (0.0-1.0)
[2022-03-20 04:50] LABS: BASOPHILS % (AUTO) 1 % (0-10); EOSINOPHILS # (AUTO) 0.2 10^3/uL (0.0-0.3); EOSINOPHILS % (AUTO) 2 % (0-10); HEMATOCRIT 40 % (40-54); LYMPHOCYTES # (AUTO) 1.3 10^3/uL (1.0-4.0); LYMPHOCYTES % (AUTO) 14 % (12-44); MEAN CORPUSCULAR HGB CONC 32 g/dL (32-36); MEAN PLATELET VOLUME 13.5 fL (9.0-12.2); MONOCYTES % (AUTO) 6 % (0-12); NEUTROPHILS # (AUTO) 7.2 10^3/uL (1.8-7.8); NEUTROPHILS % (AUTO) 77 % (42-75); PLATELET COUNT 89 10^3/uL (130-400); WHITE BLOOD COUNT 9.3 10^3/uL (4.3-11.0)
[2022-03-20 05:16] LABS: CALCIUM 8.7 MG/DL (8.5-10.1); CREATININE SERUM 0.88 MG/DL (0.60-1.30); MAGNESIUM 1.9 MG/DL (1.6-2.4); POTASSIUM 3.1 MMOL/L (3.6-5.0)
[2022-03-20] MEDS: CATHETER FLUSH 10 ML SYR IVP SCH ×3 (06:31→19:28)
[2022-03-20] MEDS: FUROSEMIDE 40 MG/4 ML INJ (LASIX) IV SCH ×2 (06:31→19:27)
--- NOTE | 2022-03-20 07:49 | Diagnostic Imaging Report ---
EXAMINATION: Chest 1 view HISTORY: Heart failure COMPARISON: 03/19/2022 FINDINGS: There is a large left pleural effusion with overlying atelectasis. No edema or pneumonia. No pneumothorax. Heart size is normal. IMPRESSION: 1. Large left pleural effusion with overlying atelectasis. Dictated by: Dictated on workstation # [id number]
[2022-03-20 08:00] VITALS: BP 120/72
[2022-03-20] MEDS: KCL 20 MEQ TAB (K-DUR) PO SCH ×2 (08:32→18:52)
[2022-03-20] MEDS: SPIRONOLACTONE 25 MG (ALDACTONE) TAB PO SCH ×2 (08:32→20:48)
[2022-03-20] MEDS ORDERED: KCL 20 MEQ TAB (K-DUR) PO NR (10:00)
--- NOTE | 2022-03-20 10:53 | Consultation-Cardiology ---
HPI-Cardiology Cardiology Consultation Date of Consultation 03/20/22 Date of Admission Time Seen by Provider: 10:46 Indication: Congestive heart failure HPI 76-year-old gentleman with history of congestive heart failure, on medical therapy. Has been having increasing peripheral edema, worsening swelling in his lower extremities. Denied any chest pain. No palpitation. No syncope or near syncopal episodes. Came into the emergency room with significant peripheral edema. Chest x-ray showed pleural effusion, peripheral edema. Congestive heart failure. He was started on aggressive diuresis and appears to be responding well to diu retics. Still wearing a LifeVest. Home Medications & Allergies Allergies: Coded Allergies: No Known Drug Allergies (Unverified , 11/07/21) Home Medication List Reviewed: Yes LSR-Dtbsmx-Gqntsa Hx Patient Social History Marital Status: Employed/Student: retired Smoking Status: Light Tobacco Smoker Have you traveled recently?: No Alcohol Use?: No Past Medical History Discussed below Family Medical History Family Medical Hx Noncontributory Review of Systems-General Review of Systems Constitutional: see HPI, malaise, weakness EENTM: see HPI, no symptoms reported Respiratory: see HPI, short of breath Cardiovascular: see HPI, edema Gastrointestinal: see HPI Genitourinary: see HPI Musculoskeletal: see HPI Skin: see HPI Psychiatric/Neurological: See HPI, Anxiety All Other Systems Reviewed Negative Unless Noted: No Reviewed Test Results Reviewed Test Results Lab Laboratory Tests Test 03/19/22 17:55 03/20/22 04:13 Range/Units White Blood Count 8.1 9.3 4.3-11.0 10^3/uL Red Blood Count 4.85 4.54 4.30-5.52 10^6/uL Hemoglobin 13.9 12.9 L 13.3-17.7 g/dL Hematocrit 43 40 40-54 % Mean Corpuscular Volume 88 89 80-99 fL Mean Corpuscular Hemoglobin 29 28 25-34 pg Mean Corpuscular Hemoglobin Concent 33 32 32-36 g/dL Red Cell Distribution Width 16.5 H 16.2 H 10.0-14.5 % Platelet Count 115 L 89 L 130-400 10^3/uL Mean Platelet Volume 13.3 H 13.5 H 9.0-12.2 fL Immature Granulocyte % (Auto) 0 0 % Neutrophils (%) (Auto) 70 77 H 42-75 % Lymphocytes (%) (Auto) 20 14 12-44 % Monocytes (%) (Auto) 7 6 0-12 % Eosinophils (%) (Auto) 3 2 0-10 % Basophils (%) (Auto) 1 1 0-10 % Neutrophils # (Auto) 5.7 7.2 1.8-7.8 10^3/uL Lymphocytes # (Auto) 1.6 1.3 1.0-4.0 10^3/uL Monocytes # (Auto) 0.5 0.5 0.0-1.0 10^3/uL Eosinophils # (Auto) 0.2 0.2 0.0-0.3 10^3/uL Basophils # (Auto) 0.1 0.1 0.0-0.1 10^3/uL Immature Granulocyte # (Auto) 0.0 0.0 0.0-0.1 10^3/uL Percent Immature Platelet Fraction 9.7 H 9.7 H 0.0-7.6 % Sodium Level 139 141 135-145 MMOL/L Potassium Level 3.1 L 3.1 L 3.6-5.0 MMOL/L Chloride Level 102 103 98-107 MMOL/L Carbon Dioxide Level 26 25 21-32 MMOL/L Anion Gap 11 13 5-14 MMOL/L Blood Urea Nitrogen 26 H 21 H 7-18 MG/DL Creatinine 0.90 0.88 0.60-1.30 MG/DL Estimat Glomerular Filtration Rate 89 90 BUN/Creatinine Ratio 29 24 Glucose Level 201 H 153 H 70-105 MG/DL Calcium Level 9.0 8.7 8.5-10.1 MG/DL Corrected Calcium 8.9 8.5-10.1 MG/DL Magnesium Level 1.4 L 1.9 1.6-2.4 MG/DL Total Bilirubin 1.2 H 0.1-1.0 MG/DL Aspartate Amino Transf (AST/SGOT) 23 5-34 U/L Alanine Aminotransferase (ALT/SGPT) 28 0-55 U/L Alkaline Phosphatase 131 40-136 U/L Troponin I < 0.30 <0.30 NG/ML Pro-B-Type Natriuretic Peptide 67275.0 H <450.0 PG/ML Total Protein 6.3 L 6.4-8.2 GM/DL Albumin 4.1 3.2-4.5 GM/DL Influenza Type A (RT-PCR) Not Detected Not Detecte Influenza Type B (RT-PCR) Not Detected Not Detecte SARS-CoV-2 RNA (RT-PCR) Not Detected Not Detecte Physical Exam Physical Exam Vital Signs Vital Signs - First Documented 03/19/22 03/20/22 17:26 01:00 Temp 36.1 Pulse 60 Resp 18 B/P (MAP) 138/82 (100) Pulse Ox 97 O2 Delivery Room Air O2 Flow Rate 2.00 Capillary Refill : Less Than 3 Seconds Height, Weight, BMI Height: '" Weight: lbs. oz. kg; 27.02 BMI Method: General Appearance: No Apparent Distress, WD/WN Eyes: Bilateral Eye Normal Inspection, Bilateral Eye PERRL, Bilateral Eye EOMI HEENT: PERRL/EOMI, Normal ENT Inspection, Pharynx Normal Neck: Supple Respiratory: Decreased Breath Sounds Cardiovascular: Other (Edema extending from feet to distal thighs) Gastrointestinal: Non Tender Back: Normal Inspection Extremity: Swelling A/P-Cardiology Admission Diagnosis Congestive heart failure, acute on chronic left ventricular systolic dysfunction, ischemic cardiomyopathy Coronary artery disease Hypertension Hyperlipidemia. Assessment/Plan Fluid overload with peripheral edema large pleural effusion. Started on aggressive diuresis and consult Dr. Martines for possible thoracentesis. Congestive heart failure, acute on chronic left ventricular systolic dysfunction, has been on diuretics and has been compliant with his medications. Ischemic cardiomyopathy. I will repeat 2D echocardiogram Wearing a LifeVest since December 2021, planning for ICD implant Coronary artery disease, History of myocardial infarction in in 2013 and reporting that he had 3 stents Repeat cardiac catheterization was done on December 16, 2021 after having an abnormal stress test showing severe in-stent restenosis in the mid right coronary artery with successful balloon angioplasty with excellent results. Patent stent in the mid circumflex artery with moderate disease, calcified LAD with mild to moderate disease, elevated left ventricular end-diastolic pressure Frequent premature ventricular contractions, maintained on beta-blockers Hypertension, well controlled on current medication Maintained on lisinopril 20 mg daily, hydrochlorothiazide 25 mg daily and Toprol 100 mg twice daily Hyperlipidemia, maintained on Lipitor Diabetes mellitus, maintained on metformin and Jardiance Carotid stenosis, He was referred for vascular surgery for bilateral severe carotid disease Tobaccoism, still an active smoker, educated on smoking cessation. PATRICIA NAVARRO MD Mar 20, 2022 10:53
[2022-03-20 11:59] VITALS: BP 141/92
[2022-03-20] MEDS: meTOprolol TARTRATE 50 MG (LOPRESSOR) TAB PO SCH ×2 (14:24→20:48)
[2022-03-20] MEDS: EMPAGLIFLOZIN 10 MG TABLET (JARDIANCE) PO SCH (14:24)
[2022-03-20] MEDS: CLOPIDOGREL 75 MG (PLAVIX) TABLET PO SCH (14:24)
[2022-03-20] MEDS: ASPIRIN E.C. 81 MG (ECOTRIN) TAB PO SCH (14:24)
[2022-03-20 15:59] VITALS: BP 147/100
--- NOTE | 2022-03-20 18:18 | Consultation - Surgery ---
History of Present Illness History of Present Illness Patient Consulted On(micki/time) 03/20/22 18:12 Time Seen by Provider: 11:07 Reason for Visit: Congestive heart failure History of Present Illness Surgery asked to consult regarding pleural effusion. HPI per ED: Patient reports he has had chest congestion and tightness for 5-6 days. He reports he was seen at the [facility] walk-in clinic earlier today and had a chest xray that showed left lower lobe pneumonia and a left pleural effusion. He reports the walk-in care provider prescribed him antibiotics for the pneumonia, but told him he would need to come to the ED to get treatment for his pleural effusion. He reports he takes 40 mg of lasix daily and that he had a cardiac catheterization with Dr. Guerrero in December 2021. He reports he had 2 cardiac stents previously placed. Patient is a 76-year-old male presents with chest tightness congestion with orthopnea for the past several days. Patient has history of CHF, cardiomyopathy and hypertension and reports a 20 pound weight gain in the past several weeks. He denies dyspnea when sitting but reports mild dyspnea with exertion he denies chest pain palpitations. Reports dry nonproductive cough. He reports increased leg swelling extending into his thighs. No fever chills or sweats. No other acute symptoms or complaints. 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 Guerrero. When I spoke to pt this morning he said he actually feels much better than yesterday and finally got a good nights sleep; which hasn't happened in "months". He denies any trouble breathing. States since the stents "got cleaned out" he is doing better. Allergies and Home Medications Allergies Coded Allergies: No Known Drug Allergies (Unverified , 11/07/21) Patient Home Medication List Home Medication List Reviewed: Yes Aspirin (Aspirin EC) 81 Mg Tablet., 81 MG PO DAILY, (Reported) Entered as Reported by: ERASMO ENRIQUEZ on 12/16/21729 Atorvastatin Calcium (Atorvastatin Calcium) 20 Mg Tablet, 20 MG PO DAILY, (Reported) Entered as Reported by: ERASMO ENRIQUEZ on 12/16/21729 Clopidogrel Bisulfate (Plavix) 75 Mg Tablet, 75 MG PO DAILY, (Reported) Entered as Reported by: ERASMO ENRIQUEZ on 12/16/21729 Empagliflozin (Jardiance) 10 Mg Tablet, 10 MG PO DAILY Prescribed by: PATRICIA GUERRERO on 12/17/2159 Lisinopril (Lisinopril) 20 Mg Tablet, 20 MG PO DAILY, (Reported) Entered as Reported by: ERASMO ENRIQUEZ on 12/16/21729 Metformin HCl (Metformin HCl) 500 Mg Tablet, 1,000 MG PO BID Prescribed by: PATRICIA GUERRERO on 12/17/2159 Metoprolol Tartrate (Metoprolol Tartrate) 50 Mg Tablet, 50 MG PO BID, (Reported) Entered as Reported by: ERASMO ENRIQUEZ on 12/16/21729 Past Cesplug-Yhhmrb-Rlgunh Hx Patient Social History Smoking Status: Light Tobacco Smoker Alcohol Use?: No Have you traveled recently?: No Surgeries History of Surgeries: Yes Surgeries: Coronary Stent Respiratory History of Respiratory Disorde: Yes Respiratory Disorders: Pneumonia Cardiovascular History of Cardiac Disorders: Yes Cardiac Disorders: Coronary Artery Disease, High Cholesterol, Hypertension Neurological History of Neurological Disord: No Genitourinary History of Genitourinary Disor: No Gastrointestinal History of Gastrointestinal Di: Yes Gastrointestinal Disorders: Gastroesophageal Reflux Musculoskeletal History of Musculoskeletal Dis: Yes Musculoskeletal Disorders: Arthritis Endocrine History of Endocrine Disorders: Yes Endocrine Disorders: Diabetes, Non-Insulin dep HEENT History of HEENT Disorders: No Cancer History of Cancer: No Psychosocial History of Psychiatric Problem: No Family Medical History Significant Family History: Heart Disease (father), Diabetes (father) Review of Systems-General Constitutional: malaise, weakness EENTM: No blurred vision, No double vision, No mouth pain, No epistaxis Respiratory: No cough; dyspnea on exertion; No hemoptysis; short of breath Cardiovascular: chest pain, Hx of Intervention; No palpitations Gastrointestinal: No abdominal pain, No jaundice, No nausea, No vomiting Genitourinary: No dysuria, No frequency Musculoskeletal: joint pain, joint swelling Skin: No change in color, No change in hair/nails Psychiatric/Neurological: Denies Anxiety, Denies Depressed, Denies Seizure, De nies Tremors Physical Exam-General Problems Physical Exam Vital Signs Vital Signs - First Documented 03/19/22 03/20/22 17:26 01:00 Temp 36.1 Pulse 60 Resp 18 B/P (MAP) 138/82 (100) Pulse Ox 97 O2 Delivery Room Air O2 Flow Rate 2.00 Capillary Refill : Less Than 3 Seconds General Appearance: WD/WN, no apparent distress Eyes: Bilateral Eye PERRL, Bilateral Eye EOMI HEENT: pharynx normal; No scleral icterus (R), No scleral icterus (L) Neck: non-tender, supple Respiratory: chest non-tender, normal breath sounds (right side), no respiratory distress, no accessory muscle use, decreased breath sounds (left middle and lower lobes) Gastrointestinal: non tender, soft, no organomegaly Back: no CVA tenderness, no vertebral tenderness Extremities: no calf tenderness, normal capillary refill Neurologic/Psychiatric: alert, normal mood/affect, oriented x 3 Skin: normal color, warm/dry Lymphatic: no adenopathy (neck, axilla or groin) Data Review Labs Laboratory Tests 03/20/22 04:13: White Blood Count 9.3, Red Blood Count 4.54, Hemoglobin 12.9L, Hematocrit 40, Mean Corpuscular Volume 89, Mean Corpuscular Hemoglobin 28, Mean Corpuscular Hemoglobin Concent 32, Red Cell Distribution Width 16.2H, Platelet Count 89L, Mean Platelet Volume 13.5H, Immature Granulocyte % (Auto) 0, Neutrophils (%) (Auto) 77H, Lymphocytes (%) (Auto) 14, Monocytes (%) (Auto) 6, Eosinophils (%) (Auto) 2, Basophils (%) (Auto) 1, Neutrophils # (Auto) 7.2, Lymphocytes # (Auto) 1.3, Monocytes # (Auto) 0.5, Eosinophils # (Auto) 0.2, Basophils # (Auto) 0.1, Immature Granulocyte # (Auto) 0.0, Percent Immature Platelet Fraction 9.7H, Sodium Level 141, Potassium Level 3.1L, Chloride Level 103, Carbon Dioxide Level 25, Anion Gap 13, Blood Urea Nitrogen 21H, Creatinine 0.88, Estimat Glomerular Filtration Rate 90, BUN/Creatinine Ratio 24, Glucose Level 153H, Calcium Level 8.7, Magnesium Level 1.9 Radiology Date of Exam:03/20/22 CHEST 1 VIEW, AP/PA ONLY EXAMINATION: Chest 1 view HISTORY: Heart failure COMPARISON: 03/19/2022 FINDINGS: There is a large left pleural effusion with overlying atelectasis. No edema or pneumonia. No pneumothorax. Heart size is normal. IMPRESSION: 1. Large left pleural effusion with overlying atelectasis. Dictated by: Dictated on workstation # [id number] Dict: 03/20/22 0724 Trans: 03/20/22 0849 [facility] [place] [id number] Interpreted by: HUY DODSON MD Electronically signed by: HUY DODSON MD 03/20/22 0849 Assessment/Plan Assessment/Plan Assessment/Plan Large Left Pleural effusion CHF Hx of recent Pneumonia DM Pt is doing well and not on any Oxygen. I talked to pt and his family regarding possible thoracentesis; risks and complications not limited to pain, bleeding, infection and pneumothorax. I gave him options, but also told them that I do not think he needs a Thoracentesis at this time. We don't have US on the weekend except for emergencies and I would not want to blindly stick a needle in to drain the fluid. He and his family agreed and will try to let the diuretics get the fluid off his lungs. If it gets worse or doesn't change he can follow up with me as an outpt. SAMIR JOSEPH DO Mar 20, 2022 18:18
[2022-03-20 20:00] VITALS: BP 149/108
[2022-03-20] MEDS: ENOXAPARIN 40 MG/0.4 ML (LOVENOX) SYR SC SCH ×2 (20:48→20:54)
[2022-03-21] VITALS (10 sets, daily range): BP systolic 106–135; BP diastolic 68–85
[2022-03-21 05:23] LABS: CHOLESTEROL 98 MG/DL (< 200); HDL CHOLESTEROL 38 MG/DL (40-60); TRIGLYCERIDES 43 MG/DL (<150); VLDL CHOLESTEROL 9 MG/DL (5-40)
[2022-03-21] MEDS: CATHETER FLUSH 10 ML SYR IVP SCH ×3 (06:01→20:42)
[2022-03-21] MEDS: FUROSEMIDE 40 MG/4 ML INJ (LASIX) IV SCH ×2 (06:01→18:08)
[2022-03-21] MEDS: ASPIRIN E.C. 81 MG (ECOTRIN) TAB PO SCH (07:25)
[2022-03-21] MEDS: CLOPIDOGREL 75 MG (PLAVIX) TABLET PO SCH (07:25)
[2022-03-21] MEDS ORDERED: MIDAZOLAM 5 MG/5 ML (VERSED) VIAL ONE (08:58)
[2022-03-21] MEDS ORDERED: fentaNYL INJ 100 MCG/2 ML AMP ONE (08:58)
[2022-03-21] MEDS ORDERED: LIDOCAINE 1% INJ 20 ML VIAL ONE (08:58)
[2022-03-21] MEDS ORDERED: NS IV 1000 ML 2,000 ML ONE (09:02)
[2022-03-21] MEDS ORDERED: ceFAZolin INJECTION 1,000 MG ONE (09:02)
[2022-03-21] MEDS ORDERED: HEParin (CATH LAB) 1,000 ML IV ONE (09:02)
[2022-03-21] MEDS ORDERED: proPOfol 200 MG/20 ML (DIPRIVAN) VIAL IV ONE (09:03)
--- NOTE | 2022-03-21 09:39 | Cardiology Progress Note ---
Subjective Date Seen by Provider: Mar 21, 2022 Time Seen by Provider: 09:37 Subjective/Events-last exam Patient was seen at bedside, laying down comfortably. No new complaint. Review of Systems General: No Chills, No Night Sweats, No Fatigue, No Malaise, No Appetite, No Ot her HEENT: No Head Aches, No Visual Changes, No Eye Pain, No Ear Pain, No Dysphasia, No Sinus Congestion, No Post Nasal Drip, No Sore Throat, No Other Pulmonary: No Dyspnea, No Cough, No Pleuritic Chest Pain, No Other Cardiovascular: No: Chest Pain, Palpitations, Orthopnea, Paroxysmal Noc. Dyspnea, Edema, Lt Headedness, Other Objective-Cardiology Exam Last Set of Vital Signs Vital Signs 03/21/22 03/21/22 03/21/22 07:47 08:00 09:11 Temp 36.4 Pulse 61 Resp 24 B/P (MAP) 124/73 (90) Pulse Ox 97 O2 Delivery Nasal Cannula O2 Flow Rate 2.00 I&O Intake and Output 03/21/22 00:00 Intake Total 2490 ml Output Total 6125 ml Balance -3635 ml Intake Oral 2290 ml IV Total 200 ml Output Urine Total 6125 ml General: Alert, Oriented X3, Cooperative HEENT: Atraumatic, PERRLA Neck: Supple, No JVD, No Thyromegaly Lungs: Clear to Auscultation, Normal Air Movement Heart: Regular Rate, Normal S1, Normal S2, Gallops, Other (Systolic murmur) Abdomen: Normal Bowel Sounds, Soft, No Tenderness, No Hepatosplenomegaly, No Masses Extremities: No Clubbing, No Cyanosis, Normal Pulses, No Tenderness/Swelling Skin: No Rashes, No Breakdown, No Significant Lesion, Other (Pedal edema) Neuro: Normal Gait, Normal Speech, Strength at 5/5 X4 Ext, Normal Tone, Sensation Intact Psych/Mental Status: Mental Status NL, Mood NL Results Lab Laboratory Tests Test 03/21/22 04:22 Range/Units Triglycerides Level 43 <150 MG/DL Cholesterol Level 98 < 200 MG/DL LDL Cholesterol Direct 50 1-129 MG/DL VLDL Cholesterol 9 5-40 MG/DL HDL Cholesterol 38 L 40-60 MG/DL A/P-Cardiology Admission Diagnosis Congestive heart failure, acute on chronic left ventricular systolic dysfunction, ischemic cardiomyopathy Coronary artery disease Hypertension Hyperlipidemia. Assessment/Plan Fluid overload with peripheral edema large pleural effusion. Responding well to diuretics. Discussed the management plan with Dr. Martines, recommend conservative management. Congestive heart failure, acute on chronic left ventricular systolic dysfunction, has been on diuretics and has been compliant with his medications. Ischemic cardiomyopathy. Ejection fraction 25 to 30% per echocardiogram done on March 20, 2022. Wearing a LifeVest since December 2021. I am proceeding with single-chamber ICD implant Coronary artery disease, History of myocardial infarction in in 2013 and reporting that he had 3 stents Repeat cardiac catheterization was done on December 16, 2021 after having an abnormal stress test showing severe in-stent restenosis in the mid right coronary artery with successful balloon angioplasty with excellent results. Patent stent in the mid circumflex artery with moderate disease, calcified LAD with mild to moderate disease, elevated left ventricular end-diastolic pressure Frequent premature ventricular contractions, maintained on beta-blockers Hypertension, well controlled on current medication Maintained on lisinopril 20 mg daily, hydrochlorothiazide 25 mg daily and Toprol 100 mg twice daily Hyperlipidemia, maintained on Lipitor Diabetes mellitus, maintained on metformin and Jardiance Carotid stenosis, He was referred for vascular surgery for bilateral severe carotid disease Tobaccoism, still an active smoker, educated on smoking cessation. PATRICIA NAVARRO MD Mar 21, 2022 09:39
--- NOTE | 2022-03-21 09:39 | Cardiac Procedure Note-CS/ASA ---
Pre-Procedure Note Pre-Op Procedure Note Date of Available H&P: Mar 21, 2022 Date H&P Reviewed: Mar 21, 2022 Time H&P Reviewed: 09:39 History & Physical: H&P Reviewed, Patient Examed, No changes noted Pre-Operative Diagnosis: Coronary artery disease, congestive heart failure Conscious Sedation Pre-Proced Time 09:39 ASA Score 3 For ASA 3 and 4: Consider anesthesia and medical clearance. Also, for patients with a history of failed moderate sedation consider anesthesia. Airway Lungs Heart ASA score ASA 1: a normal healthy patient ASA 2: a patient with a mild systemic disease (mid diabetes, controlled hypertension, obesity x ASA 3: a patient with a severe systemic disease that limits activity (angina, COPD, prior Myocardial infarction) ASA 4: a patient with an incapacitating disease that is a constant threat to life (CHF, renal failure) ASA 5: a moribund patient not expected to survive 24 hrs. (ruptured aneurysm) ASA 6: a declared brain- patient whose organs are being harvested. For emergent operations, add the letter E after the classification Mallampati Classification Grade 3 Sedation Plan Analgesia, Amnesia, Plan communicated to team members, Discussed options with patient/fam, Discussed risks with patient/fam The patient is an appropriate candidate to undergo the planned procedure, sedation, and anesthesia. The patient immediately re-assessed prior to indication. PATRICIA NAVARRO MD Mar 21, 2022 09:39
--- NOTE | 2022-03-21 10:18 | Progress Note - Surgery ---
ALYSSA NIEVES 03/21/22 1018: Subjective Date Seen by a Provider: Mar 21, 2022 Time Seen by a Provider: 09:15 Subjective/Events-last exam Pt reports no changes from yesterday. He is still not having any trouble breathing. Denies any sweats/chills, N/V. Review of Systems General: No Chills, No Night Sweats Pulmonary: No Dyspnea Gastrointestinal: No: Nausea, Vomiting, Abdominal Pain Objective Exam Vital Signs Date Time Temp Pulse Resp B/P (MAP) Pulse Ox O2 Delivery O2 Flow Rate FiO2 03/21/22 09:11 97 Nasal Cannula 2.00 03/21/22 08:00 61 24 124/73 (90) 98 Room Air 03/21/22 07:47 36.4 03/21/22 07:00 67 03/21/22 04:00 61 30 121/74 (90) 97 Room Air 03/21/22 04:00 36.9 03/21/22 01:00 41 03/21/22 00:00 36.9 61 32 127/85 (99) 98 03/20/22 22:32 Nasal Cannula 2.00 03/20/22 20:05 94 Room Air 03/20/22 20:00 37.1 73 38 149/108 (122) 92 03/20/22 19:00 75 03/20/22 15:59 37.3 80 18 147/100 (116) 91 03/20/22 12:40 92 03/20/22 11:59 36.8 78 18 141/92 (108) 94 Room Air I & O 03/21/22 07:00 Intake Total 1990 ml Output Total 6575 ml Balance -4585 ml Capillary Refill : Less Than 3 Seconds General Appearance: No Apparent Distress, WD/WN HEENT: PERRL/EOMI, Normal ENT Inspection, Pharynx Normal Neck: Normal Inspection, Supple Respiratory: No Accessory Muscle Use, No Respiratory Distress, Decreased Breath Sounds (L side) Cardiovascular: Regular Rate, Rhythm, No Murmur, Other (Edema extending from feet to distal thighs) Gastrointestinal: normal bowel sounds, non tender, soft Extremity: Normal Inspection, Swelling Neurologic/Psychiatric: Alert, Oriented x3 Skin: Normal Color, Warm/Dry Results Lab Laboratory Tests 03/21/22 04:22: Triglycerides Level 43, Cholesterol Level 98, LDL Cholesterol Direct 50, VLDL Cholesterol 9, HDL Cholesterol 38L Assessment/Plan Assessment/Plan Assessment/Plan Large Left Pleural effusion CHF Hx of recent Pneumonia DM Pt is doing well and not on any Oxygen. I talked to pt and his family regarding possible thoracentesis; risks and complications not limited to pain, bleeding, infection and pneumothorax. I gave him options, but also told them that I do not think he needs a Thoracentesis at this time. We don't have US on the weekend except for emergencies and I would not want to blindly stick a needle in to drain the fluid. He and his family agreed and will try to let the diuretics get the fluid off his lungs. If it gets worse or doesn't change he can follow up with me as an outpt. JAYY MARTINES DO 03/21/22 1433: Subjective Time Seen by a Provider: 12:23 Subjective/Events-last exam Pt seen and examined, had just gotten back from ICD placement and was sleepy. Breathing without difficulty and pulse Ox 96% on room air. Review of Systems General: No Chills, No Night Sweats; Fatigue Pulmonary: No Dyspnea Gastrointestinal: No: Nausea, Vomiting, Abdominal Pain Objective Exam General Appearance: No Apparent Distress, WD/WN HEENT: PERRL/EOMI Respiratory: No Accessory Muscle Use, No Respiratory Distress, Decreased Breath Sounds (L side) Cardiovascular: No Murmur, Bradycardia, Other (Edema extending from feet to distal thighs) Gastrointestinal: normal bowel sounds, non tender, soft Extremity: Swelling Skin: Normal Color, Warm/Dry Assessment/Plan Assessment/Plan Assessment/Plan Large Left Pleural effusion CHF Hx of recent Pneumonia DM Pt is doing well and not on any Oxygen. I talked to pt and his family regarding possible thoracentesis; risks and complications not limited to pain, bleeding, infection and pneumothorax. I gave him options, but also told them that I do not think he needs a Thoracentesis at this time. Will order an US for tomorrow since pt will still be here and we can get a baseline. He and his family agreed and will hope the ICD and the diuretics get the fluid off his lungs. If it gets worse or doesn't change he can follow up with me as an outpt. Supervisory-Addendum Brief Verification & Attestation Participated in pt care: history, MDM, physical Personally performed: exam, history, MDM, supervision of care Care discussed with: Medical Student Procedures: n/a Verification and Attestation of Medical Student E/M Service A medical student performed and documented this service. I then reviewed and verified all information documented by the medical student and made modifications to such information, when appropriate. I personally performed a physical exam, medical decision making and then discussed any differences between the notes and made revisions as necessary to create one note. Jayy Martines , 03/21/22 , 14:33 ALYSSA NIEVES Mar 21, 2022 10:18 JAYY MARTINES DO Mar 21, 2022 14:33
--- NOTE | 2022-03-21 11:11 | Anesthesia-General Post-Op ---
MAC Patient Condition Mental Status/LOC: Same as Preop Cardiovascular: Satisfactory Nausea/Vomiting: Absent Respiratory: Satisfactory Pain: Controlled Complications: Absent Post Op Complications Complications None Follow Up Care/Instructions Patient Instructions None needed. Anesthesiology Discharge Order Discharge Order Patient is doing well, no complaints, stable vital signs, no apparent adverse anesthesia problems. No complications reported per nursing. SHANNEN RAHMAN CRNA Mar 21, 2022 11:10
[2022-03-21] MEDS ORDERED: PATIENT MAY USE OWN MEDS, ALL PO SCH (11:15)
--- NOTE | 2022-03-21 11:18 | ICD Implantation ---
Single Chamber ICD Implant DATE OF SERVICE: 76 male SINGLE CHAMBER ICD IMPLANTATION HAND LAMINATOR: Patricia Guerrero INDICATION: 76 years old gentleman with severe cardiomyopathy, not improved after medical therapy. Admitted with heart failure. Decision was made to proceed with single-chamber ICD implant with DFT testing for primary prevention PREOPERATIVE DIAGNOSES: Congestive heart failure, chronic left ventricular systolic dysfunction, ischemic cardiomyopathy POSTOPERATIVE DIAGNOSES: Congestive heart failure, primary prevention HISTORY: ICD implantation is recommended. PROCEDURE PERFORMED: 1. Single-chamber ICD implantation. 2. Implantable loop recorder explantation. 3. Venogram. 4. DFT testing. COMPLICATIONS: None. ESTIMATED BLOOD LOSS: 20 mL. SPECIMENS: None. ANESTHESIA: Conscious sedation. ORAL ANTICOAGULATION: None. FLUOROSCOPY TIME: FLUOROSCOPY DOSE: CONTRAST DOSE: PROCEDURE DETAILS: After all the questions were answered, an informed consent was taken. All the risks and complication were explained in detail. The patient was brought to the EP lab. The patient's right and left chest was prepped and draped in the usual sterile fashion. A 2-inch horizontal incision was made 1 cm below the clavicle and dissection carried down to the pectoralis fascia. IVF were administered prior to first incision. Under fluoroscopic guidance, access was gained in the axillary vein and a regular J-wire was placed. We then introduced a sheath into the axillary vein. An ICD lead was inserted. This is a single-coiled ICD lead. The RV lead was inserted across the tricuspid valve to an apical septal portion of the RV. The lead position was checked in YONY and PRESSLEY view. The screw was deployed and lead connected to the scientific programmer analyst. Good sensing and pacing thresholds were obtained. Diaphragmatic pacing was ruled out. The lead was secured with 2-0 Vicryl nonabsorbable sutures. The lead was secured to the underlying muscle and fascia. We then took an ICD generator and the lead was connected to the device in a hermetic fashion. The device and it was placed in the pocket. Aggressive irrigation with normal saline solution was done. Interrogation of the device revealed good integrity of the leads and connection. The wound was closed using 2 layers. The first layer was an interrupted 2-0 Vicryl. The second layer was an uninterrupted 4-0 Vicryl suture. Half inch Steri-Strips and a small dressing was then applied to the wound. DFT testing was done with anesthesia support. The induction mechanism was a T- shock. The first T-shock was at 290 milliseconds at one joule. Ventricular fibrillation was induced. Patient received a single shock with 20 J and it was successful in terminating V. fib. DEVICE INFORMATION: VISIA MRI AF [id number] LEAD [id number] INTRAOPERATIVE DEVICE TESTING: Good sensing and capture activity DEVICE INTERROGATION IMMEDIATELY POSTOP: Pacing threshold 0.5 ms at 0.3 V, impedance 378, R wave 4 mV PLAN: The patient will be observed for 23 hours. We will continue with two more dosages of IV antibiotics. We will check a chest x-ray and interrogate the device in the morning. An EKG will be done as well. If everything checks out, the patient will be discharged tomorrow. CONCLUSION: Successful single-chamber ICD implant without complication Successful DFT testing PATRICIA GUERRERO MD Mar 21, 2022 11:18
--- NOTE | 2022-03-21 13:08 | Diagnostic Imaging Report ---
Indication: Status post implantable cardiac defibrillator device placement. Comparison is made prior study from the previous day FINDINGS: A new single lead ICD has been placed. This appears appropriately positioned. There is no pneumothorax. The patient's left-sided pleural fluid and consolidation are unchanged. The right lung remains clear. IMPRESSION: 1. Status post ICD placement without pneumothorax. 2. Unchanged left pleural effusion with associated basilar airspace consolidation. Dictated by: Dictated on workstation # [id number]
[2022-03-21] MEDS: KCL 20 MEQ TAB (K-DUR) PO SCH ×2 (13:44→18:08)
[2022-03-21] MEDS: SPIRONOLACTONE 25 MG (ALDACTONE) TAB PO SCH ×2 (13:44→20:41)
[2022-03-21] MEDS: ceFAZolin INJECTION 1,000 MG in NS (IVPB) 50 ML IV SCH ×2 (13:45→20:41)
[2022-03-21] MEDS: meTOprolol TARTRATE 50 MG (LOPRESSOR) TAB PO SCH ×2 (13:45→20:41)
[2022-03-21] MEDS: NS IV 1000 ML 1,000 ML IV SCH (13:45)
[2022-03-21] MEDS: EMPAGLIFLOZIN 10 MG TABLET (JARDIANCE) PO SCH (13:52)
[2022-03-21] MEDS: inSUlin ASPART (NovoLOG) 1 UNIT/0.01 ML (CHARGE PER UNIT) SC SCH (20:40)
[2022-03-21] MEDS: ENOXAPARIN 40 MG/0.4 ML (LOVENOX) SYR SC SCH (20:41)
[2022-03-22] VITALS: BP 120/77
[2022-03-22 04:00] VITALS: BP 136/73
[2022-03-22 04:54] LABS: HEMOGLOBIN 13.9 g/dL (13.3-17.7); WHITE BLOOD COUNT 9.3 10^3/uL (4.3-11.0)
[2022-03-22 05:17] LABS: ALBUMIN 3.6 GM/DL (3.2-4.5); BILIRUBIN,TOTAL 1.4 MG/DL (0.1-1.0); CREATININE SERUM 0.99 MG/DL (0.60-1.30); POTASSIUM 3.8 MMOL/L (3.6-5.0); TOTAL PROTEIN 5.9 GM/DL (6.4-8.2)
[2022-03-22] MEDS: FUROSEMIDE 40 MG/4 ML INJ (LASIX) IV SCH (06:18)
[2022-03-22] MEDS: NS IV 1000 ML 1,000 ML IV SCH (06:18)
[2022-03-22] MEDS: CATHETER FLUSH 10 ML SYR IVP SCH (06:18)
[2022-03-22] MEDS: ceFAZolin INJECTION 1,000 MG in NS (IVPB) 50 ML IV SCH (06:18)
[2022-03-22] MEDS: inSUlin ASPART (NovoLOG) 1 UNIT/0.01 ML (CHARGE PER UNIT) SC SCH ×2 (06:31→11:00)
[2022-03-22 08:00] VITALS: BP 127/73
[2022-03-22] MEDS: KCL 20 MEQ TAB (K-DUR) PO SCH (08:29)
[2022-03-22] MEDS: ASPIRIN E.C. 81 MG (ECOTRIN) TAB PO SCH (08:29)
[2022-03-22] MEDS: CLOPIDOGREL 75 MG (PLAVIX) TABLET PO SCH (08:29)
[2022-03-22] MEDS: SPIRONOLACTONE 25 MG (ALDACTONE) TAB PO SCH (08:29)
[2022-03-22] MEDS: EMPAGLIFLOZIN 10 MG TABLET (JARDIANCE) PO SCH (08:29)
[2022-03-22] MEDS: meTOprolol TARTRATE 50 MG (LOPRESSOR) TAB PO SCH (08:29)
--- NOTE | 2022-03-22 09:04 | Diagnostic Imaging Report ---
INDICATION: Pleural effusion TECHNIQUE: Multiple real time lofton scale sonographic images were obtained of the left chest. CORRELATION STUDY: None FINDINGS: Imaging of the left chest demonstrates presence of a left pleural effusion. Visualized area measuring approximately 9.1 x 9.2 x 13.8 cm. IMPRESSION: 1.Left-sided pleural effusion. Dictated by: Dictated on workstation # [id number]
[2022-03-22] MEDS ORDERED: SPIR25TA5 PO (10:32)
[2022-03-22] MEDS ORDERED: POTA-53 PO (10:32)
[2022-03-22] MEDS ORDERED: METO50TA15 PO (10:32)
[2022-03-22] MEDS ORDERED: FURO-124 PO (10:32)
--- NOTE | 2022-03-22 10:33 | Discharge Inst-Post CATH ---
Discharge Inst-CATH/EP Problems Reviewed?: Yes Post Cardiac Cath/EP D/C Inst Follow Up/Plan Appointment with Dr. Guerrero's office in 1 week <b>CARDIAC CATH/EP PROCEDURE DISCHARGE INSTRUCTIONS</b> ACTIVITY * Go Home directly and rest. * Limit activity of the leg (or wrist if it was used) for 7 days including aerobics, swimming, jogging, bicycling, etc. * Restrict stair-climbing for 7 days if possible, if not, climb up with your non-cath leg, then bring together on the same step. * Avoid lifting, pushing, pulling or excessive movement of the affected extremity for 7 days. * Customary sexual activity may be resumed after 2 days-use caution not to use a position that strains or causes pain to the affected extremity. * No driving for 24 hours. * NO SMOKING. * Avoid straining for bowel movements for 7 days. * Gentle walking on level ground is allowed. * Returning to work will depend on the type of procedure and the results. Your doctor will discuss this with you. CALL YOUR DOCTOR FOR ANY OF THE FOLLOWING: *If bleeding from the puncture site occurs- Apply gentle pressure to site with clean cloth and call your doctor or EMS. * If a knot or lump forms under the skin, increases in size, or causes pain. * If bruising appears to be worsening or moving further down your leg instead of disappearing. * Temperature above 101 F. CARE OF YOUR GROIN INCISION; * Bruising or purple discoloration of the skin near the puncture site is common. * You may shower only, no bathtub bathing for 5 days. Be careful to avoid slipping as your leg may feel stiff. * If a closure device was used on your femoral artery, please see the attached guide regarding care of the device and your leg. * Leave dressing on FOR 24 hours. CARE OF YOUR WRIST INCISION; * Bruising or purple discoloration of the skin near the puncture site is common. * You may shower. * DO NOT submerge wrist. * Leave dressing on FOR 24 hours. PATRICIA GUERRERO MD Mar 22, 2022 10:33
--- NOTE | 2022-03-22 10:38 | Cardiology Discharge Summary ---
Discharge Summary Hospital Course Problems Reviewed?: Yes Hospital Course Date of Admission: Mar 19, 2022 at 20:58 Admission Diagnosis : Family Physician/Provider: Barron Miranda MD Date of Discharge: 03/22/22 Discharge Diagnosis: [Acute on chronic left ventricular systolic dysfunction, ischemic cardiomyopathy Coronary artery disease Pleural effusion Hypertension] Hospital Course: [ Fluid overload with peripheral edema large pleural effusion. Responding well to diuretics. Discussed the management plan with Dr. Martines, recommend conservative management. Congestive heart failure, acute on chronic left ventricular systolic dysfunction, has been on diuretics and has been compliant with his medications. Ischemic cardiomyopathy. Ejection fraction 25 to 30% per echocardiogram done on March 20, 2022. Continue Lasix 40 mg twice daily and Aldactone, responded well to treatment. Status post single-chamber ICD implant with DFT testing for primary prevention Large left-sided pleural effusion Patient is asymptomatic not having any significant dyspnea Discussed with Dr. Martines and possible thoracentesis if he becomes symptomatic as an outpatient. Coronary artery disease, History of myocardial infarction in in 2013 and reporting that he had 3 stents Repeat cardiac catheterization was done on December 16, 2021 after having an abnormal stress test showing severe in-stent restenosis in the mid right coronary artery with successful balloon angioplasty with excellent results. Patent stent in the mid circumflex artery with moderate disease, calcified LAD with mild to moderate disease, elevated left ventricular end-diastolic pressure Frequent premature ventricular contractions, increase metoprolol 200 mg twice daily Hypertension, well controlled on current medication Maintained on lisinopril 20 mg daily, hydrochlorothiazide 25 mg daily and Toprol 100 mg twice daily Hyperlipidemia, maintained on Lipitor Diabetes mellitus, maintained on metformin and Jardiance Carotid stenosis, He was referred for vascular surgery for bilateral severe carotid disease Tobaccoism, still an active smoker, educated on smoking cessation. ] Labs and Pending Lab Test: Laboratory Tests 03/21/22 20:08: Glucometer 174H 03/22/22 04:42: White Blood Count 9.3, Red Blood Count 4.88, Hemoglobin 13.9, Hematocrit 43, Mean Corpuscular Volume 89, Mean Corpuscular Hemoglobin 29, Mean Corpuscular Hemoglobin Concent 32, Red Cell Distribution Width 16.0H, Platelet Count 103L, Mean Platelet Volume 13.0H, Percent Immature Platelet Fraction 9.3H, Sodium Level 138, Potassium Level 3.8, Chloride Level 97L, Carbon Dioxide Level 27, Anion Gap 14, Blood Urea Nitrogen 25H, Creatinine 0.99, Estimat Glomerular Filtration Rate 79, BUN/Creatinine Ratio 25, Glucose Level 123H, Calcium Level 9.0, Corrected Calcium 9.3, Total Bilirubin 1.4H, Aspartate Amino Transf (AST/SGOT) 28, Alanine Aminotransferase (ALT/SGPT) 35, Alkaline Phosphatase 109, Total Protein 5.9L, Albumin 3.6 Home Meds Active K-Tab ER (Potassium Chloride) 20 Meq Tablet.er 20 Meq PO DAILY Lasix (Furosemide) 40 Mg Tablet 40 Mg PO BID Spironolactone 25 Mg Tablet 25 Mg PO BID Metoprolol Tartrate 50 Mg Tablet 100 Mg PO BID Jardiance (Empagliflozin) 10 Mg Tablet 10 Mg PO DAILY Metformin HCl 500 Mg Tablet 1,000 Mg PO BID Hold metformin for 48 hours Reported Plavix (Clopidogrel Bisulfate) 75 Mg Tablet 75 Mg PO DAILY Aspirin EC (Aspirin) 81 Mg Tablet.dr 81 Mg PO DAILY Lisinopril 20 Mg Tablet 20 Mg PO DAILY Metoprolol Tartrate 50 Mg Tablet 50 Mg PO BID Atorvastatin Calcium 20 Mg Tablet 20 Mg PO DAILY Assessment/Pt DC Instructions Arrangement for follow-up in 1 week Discharge Diet: Cardiac Diet Discharge Physical Examination Allergies: Coded Allergies: No Known Drug Allergies (Unverified , 11/07/21) General Appearance: No Apparent Distress, WD/WN HEENT: PERRL/EOMI, TMs Normal, Normal ENT Inspection, Pharynx Normal Respiratory: Chest Non Tender, No Accessory Muscle Use, Decreased Breath Sounds Cardiovascular: Regular Rate, Rhythm, No Gallop, No JVD, Systolic Murmur, Other (Peripheral edema) Gastrointestinal: Normal Bowel Sounds Extremity: Normal Capillary Refill Skin: Normal Color, Warm/Dry Neurologic/Psychiatric: Alert, Oriented x3, high school vice principal II-XII Norm as Tested Clinical Quality Measures Admission Status Admission Status: Inpatient Order (span 2 midnights) Reason for Inpatient Admission: Congestive heart failure, acute on chronic left ventricular systolic dysfunction, ischemic cardiomyopathy AMI/AHF: Ejection Fraction: <40 (DONNELL/ARB Indicated) D/C Medications Addressed: Donnell inhibitors, Beta irene, Diuretic DVT/VTE Risk/Contraindication: VTE Addressed: Yes PATRICIA NAVARRO MD Mar 22, 2022 10:38
[2022-03-22 12:00] VITALS: BP 127/73
== END 2022-03-22 13:18 | disposition home or self-care (01) | DRG 226 ==
LOC: EDUNIT# 17:16 → ER FS 17:17 → ICU 20:58 → CSD 03-21 15:34
PROVIDERS: ADMIT Internal Medicine; ATTEND Internal Medicine
PROC: 02HK3KZ Insertion of Defibrillator Lead into Right Ventricle, Percutaneous Approach (ICD-10-PCS; principal; 2022-03-21)
PROC: 0JH608Z Insertion of Defibrillator Generator into Chest Subcutaneous Tissue and Fascia, Open Approach (ICD-10-PCS; 2022-03-21)
DX: I11.0 Hypertensive heart disease with heart failure (principal); I50.23 Acute on chronic systolic (congestive) heart failure; I25.5 Ischemic cardiomyopathy; I25.10 Atherosclerotic heart disease of native coronary artery without angina pectoris; F17.210 Nicotine dependence, cigarettes, uncomplicated; E11.9 Type 2 diabetes mellitus without complications; E78.00 Pure hypercholesterolemia, unspecified; E87.6 Hypokalemia; Z20.822 Contact with and (suspected) exposure to COVID-19; I49.3 Ventricular premature depolarization; I65.23 Occlusion and stenosis of bilateral carotid arteries; Z95.5 Presence of coronary angioplasty implant and graft; Z79.84 Long term (current) use of oral hypoglycemic drugs; Z79.82 Long term (current) use of aspirin
CPT/HCPCS: 33249; 36415; 51702; 71045; 76604; 80048; 80053; 80061; 82947; 83735; 83880; 84484; 85025; 85027; 87636; 93005; 93306; 93641

== ENCOUNTER → 2022-04-07 | Outpatient (CLI) | payer MEDICARE ==
[~2022-04-07] MED LIST changes: +FURO-124 PO; +POTA-53 PO; +SPIR25TA5 PO
--- NOTE | 2022-04-07 14:23 | Diagnostic Imaging Report ---
INDICATION: PAIN IN LEFT HIP COMPARISON: None. FINDINGS: 2 views of the left hip were obtained and show no fractures, dislocations, or other acute bony abnormalities. Joint spaces are well maintained throughout. The soft tissues appear unremarkable. No unexpected radiopaque foreign bodies are identified. Note is made of calcified arterial sclerosis. IMPRESSION: Unremarkable radiographic exam of the left hip. Dictated by: Dictated on workstation # [id number]
== END ==
LOC: RAD FS 13:05
PROVIDERS: ATTEND Registered Nurse Emergency
DX: M25.552 Pain in left hip (principal)
CPT/HCPCS: 73502

== ENCOUNTER → 2022-04-08 | Outpatient (CLI) | payer MEDICARE | LOC: ORTHO 13:00 | PROVIDERS: ATTEND Orthopaedic Surgery | DX: M54.32 Sciatica, left side (principal) ==

== ENCOUNTER → 2023-05-30 | Outpatient (CLI) | payer MEDICARE ==
[~2023-05-30] MED LIST changes: +CLOP-31 PO; -CLOP75TA69 PO; +HOLD METFORMIN - RECEIVED CONTRAST 20 ML VIAL IV SCH; +IOHEXOL 350 MG/ML 100 ML (OMNIPAQUE 350) VIAL IV ONE; +NS 100 ML (IVPB) BAG IV ONE; +POTA-330 PO; -POTA-51 PO
[2023-05-30 11:33] LABS: CREATININE SERUM 1.48 MG/DL (0.60-1.30)
--- NOTE | 2023-05-30 12:39 | Diagnostic Imaging Report ---
PROCEDURE: CT angiography of the head and CT angiography of the neck with and without contrast. TECHNIQUE: Contiguous noncontrast images were obtained from the skull base through the vertex. After intravenous contrast administration, helical CT angiography of the neck was performed. Source data was reformatted into 3D MIP projections. Delayed post contrast acquisition was also obtained. Auto Exposure Controls were utilized during the CT exam to meet ALARA standards for radiation dose reduction. INDICATION: Carotid artery stenosis. No prior studies are available for comparison. Precontrast head CT demonstrates ventricles and sulci to be appropriate for the patient's age. No sulcal effacement or midline shift is identified. No acute intra-axial or extra-axial hemorrhage is detected. Cisterns are patent. Visualized paranasal sinuses are clear. The delayed postcontrast images through the brain are without evidence of an enhancing lesion. CT angiographic portion of the exam does demonstrate a normal branching pattern to the aortic arch. Both common carotid arteries appear to be patent with moderate plaque at the carotid bifurcations. There is moderate narrowing at the origins of the right and left internal carotid arteries. Origin of the left ICA does show approximately 50% narrowing. There is a 2nd focus of moderate narrowing approximately 12 mm beyond the origin where there is some focal narrowing of approximately 50%. Remainder of the ICAs appear to be widely patent with moderate plaquing at the siphons bilaterally. Bilateral middle cerebral as well as bilateral anterior cerebral and posterior cerebral arteries appear patent. Basilar artery is patent. The vertebral arteries appear to be codominant and widely patent. IMPRESSION: There is moderate calcified plaque at the carotid bifurcations bilaterally with moderate narrowing bilateral proximal internal carotid arteries approximately 50%. No high-grade stenosis is identified. No intracranial stenosis or thromboemboli are detected. Dictated by: Dictated on workstation # [id number]
== END ==
LOC: RAD 10:44
PROVIDERS: ATTEND Internal Medicine Cardiovascular Disease
DX: I65.23 Occlusion and stenosis of bilateral carotid arteries (principal); I25.10 Atherosclerotic heart disease of native coronary artery without angina pectoris
CPT/HCPCS: 36415; 70496; 70498; 82565; 84520